=== PATIENT | male | born 1985 ===

== ENCOUNTER 2022-10-06 18:58 | Emergency (ER) | payer OTHER, SELFPAY ==
--- NOTE | ~2022-10-06 | XR_ITS ---
EXAMINATION: XR ABDOMEN KUB CLINICAL INDICATION: Abdominal pain; question constipation. COMPARISON: None available. TECHNIQUE: 2 AP views of the abdomen and pelvis are submitted. FINDINGS: The bowel gas pattern is normal, with no evidence of ileus or obstruction. No unusual soft tissue calcifications are noted. The bones are unremarkable. XR/XR KUB IMPRESSION: Unremarkable examination.
--- NOTE | ~2022-10-06 | US_ITS ---
EXAMINATION: US ABDOMEN LIMITED CLINICAL INFORMATION: Right upper quadrant pain.. COMPARISON: None available. TECHNIQUE: Real-time imaging of the right upper quadrant abdominal viscera.: Doppler exam used. FINDINGS: PANCREAS: Obscured by bowel gas LIVER: Diffuse increased echogenicity of the liver parenchyma consistent with mild diffuse fatty change of liver. The liver is normal in size. The liver contour is normal. There is no focal hepatic lesion. There is no intrahepatic biliary duct dilatation seen. GALLBLADDER: None past study. Gallbladder is contracted. 3 mm nonshadowing echogenic focus along the wall may be a small polyp. No gallstones. No gallbladder wall thickening or pericholecystic fluid. COMMON BILE DUCT: Normal in caliber measuring 0.3 cm in diameter. RIGHT KIDNEY: Normal. No hydronephrosis. No renal calculi or focal parenchymal lesions. The kidney measures 11.1 cm in maximum dimension. FREE FLUID: None. US/US abdomen limited IMPRESSION: 1. No acute abnormality. No gallstone or acute change of gallbladder. No bile duct dilatation. 2. Mild diffuse fatty change of liver.
--- NOTE | 2022-10-06 19:19 | ED_ITS ---
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 Patient reports that is in his mid upper abdomen as well as right side. Pain is worse after eating. The pain is worsening over the last 3 days Reports associated nausea. Denies any history of abdominal surgeries He describes his pain as ?pressure. ? No fevers or chills. Patient reports he last had a normal bowel movement last night Related Data Previous Rx's Medication Instructions Recorded varenicline 0.5 mg (11)-1 mg (42) See Rx Instructions PO PER PKG DIR 12/04/20 tablets in a dose pack ([employer] #53 ea Starting Month Box) omeprazole 20 mg tablet,delayed 20 mg PO DAILY #14 tabs 10/06/22 release simethicone 125 mg chewable tablet 125 mg PO TID PRN abdominal 10/06/22 distention #15 tabs Allergies Allergy/AdvReac Type Severity Reaction Status Date / Time No Known Allergies Allergy Verified 10/06/22 19:20 [No Known Allergies*] Review of Systems Constitutional: Reports as per HPI, Denies chills, Denies fatigue, Denies fever(s) and Denies headache(s) Denies headache(s) Cardiovascular: Denies chest pain and Denies dyspnea Respiratory: Denies cough and Denies dyspnea Gastrointestinal: Reports abdominal pain, Denies nausea and Denies vomiting Genitourinary: Denies difficulty urinating and Denies dysuria Denies headache(s) and Denies focal weakness Endocrine: Denies fatigue [facility] Family History Family History (Updated 12/04/20 @ 12:19 by Padmini Devlin CMA) Mother Diabetes Father Diabetes Social History Social History Housing: Apartment Alcohol intake: current Alcohol intake frequency: a few times a month Alcohol type: beer Tobacco use type: Cigarette Cigarettes Per Day: 8 Smoked in Last 30 Days: Yes e-Cigarette/Vaping Use: Never Used Use of substances other than those prescribed or required for medical reasons: No Advance Directives: No Advance Directives Information Provided: No service: No Current occupation: maintenance Physical Exam ED Vital Signs: Vital Signs - 24 hr 10/06/22 19:20 10/06/22 20:26 10/06/22 20:54 Temperature 98 F 98.4 F 98.4 F Pulse Rate 77 80 78 Respiratory Rate 19 15 16 Blood Pressure 120/69 128/83 132/85 Pulse Oximetry 98 99 97 Oxygen Delivery Method Room Air Room Air Room Air 10/06/22 21:53 Temperature 98.3 F Pulse Rate 76 Respiratory Rate 16 Blood Pressure 128/77 Pulse Oximetry 97 Oxygen Delivery Method Room Air BMI result Body Mass Index 26.0 Const General: healthy appearing, comfortable, no acute distress, alert and awake Nutritional Appearance: well nourished Orientation/consciousness: patient oriented x3 HENMT Head: Yes normocephalic and Yes atraumatic Throat: Yes posterior oropharynx normal Eyes Eyelids: Yes eyelids normal Conjunctivae: conjunctivae normal Sclerae: sclerae normal Corneas: corneas normal Pupils: Equal, round and reactive pupils present EOM: EOMs intact bilaterally Neck Neck: Yes full ROM Resp Effort & Inspection: normal respiratory effort, able to speak in complete sentences and not labored GI Inspection: No distended Palpation (GI): Soft to palpation, not firm, Tenderness to palpation present (GI) in the epigastrum and in the RUQ, no guarding and not rigid Auscultation: normoactive bowel sounds Skin General skin exam: no rashes or lesions noted and elasticity normal Neuro General: patient oriented x3 Cranial nerves: Yes Equal, round and reactive pupils present and Yes Bilaterally intact EOM present Cognition (Neuro): normal cognition Extrem Other: Moving all extremities well without any obvious deformities Course Course Course Narrative: RME - 37 yo Serbian speaking male presenting to the ER for evaluation of RUQ pain that radiates to his back for the last 3 days, worse today. Worse with eating. No N/V/D. No fever, chills, urinary symptoms. Plan: lab work, RUQ U/S Medical Decision Making Medical Decision Making [facility] Narrative: Patient is well-appearing, right upper quadrant sign negative for biliary disease. Labs are reassuring. Patient reports some improvement with GI cocktail. Patient's KUB shows obstipation/constipation. This was discussed with the patient using a python developer Differential Diagnosis Abdominal pain Constipation Obstipation GERD Gastritis Biliary disease Cholelithiasis Acute cholecystitis Lab Data [facility] Lab Attestation statement: I reviewed the patient's lab results. (No significant lab abnormalities) 10/06/22 19:40 10/06/22 19:40 Labs: Lab Results 10/06/22 10/06/22 Range/Units 19:40 19:40 WBC 9.9 (4.8-10.8) X10*3/uL RBC 4.88 (4.60-5.80) X10*6/uL Hgb 14.4 (14.0-18.0) g/dl Hct 43.8 (42.0-52.0) % MCV 89.8 (80.0-98.0) fL MCH 29.5 (27.0-33.0) pg MCHC 32.9 (31.0-36.0) g/dl RDW 12.8 (11.0-16.0) % Plt Count 241 (160-400) X10*3/uL MPV 11.2 (9.4-12.4) fL Immature Gran % (Auto) 0.3 (0.0-0.4) % Neut % (Auto) 53.8 (45-73) % Lymph % (Auto) 32.5 (20-40) % [place] % (Auto) 7.8 (2-11) % Eos % (Auto) 5.0 H (0-4) % Baso % (Auto) 0.6 (0-2) % Lymph # (Auto) 3.2 (1.2-4.9) X10*3/uL [place] # (Auto) 0.8 (0.1-1.2) X10*3/uL Eos # (Auto) 0.5 H (0.0-0.4) X10*3/uL Baso # (Auto) 0.1 (0.0-0.2) X10*3/uL Abs Immat Gran (auto) 0.03 (0.00-0.03) X10*3/uL Absolute Neuts (auto) 5.3 (2.0-8.3) x10*3/uL Absolute Nucleated RBC 0.000 (0.0-0.012) X10*3/uL Nucleated RBC % (auto) 0.0 (0.0-0.2) /100WBC Sodium 141 (135-145) mmol/L Potassium 3.8 (3.3-5.1) mmol/L Chloride 107 (96-108) mmol/L Carbon Dioxide 27 (22-29) mmol/L Anion Gap 11 L (12-20) BUN 11 (9-16) mg/dL Creatinine 0.76 (0.5-1.4) mg/dL Estim Creat Clear Calc 134.3 Estimated GFR > 60 Random Glucose 121 H (60-115) mg/dL Calcium 9.4 (8.4-10.2) mg/dL Magnesium 2.2 (1.6-2.6) mg/dL Total Bilirubin 0.3 (0.0-1.0) mg/dL Direct Bilirubin 0.1 (0.0-0.5) mg/dL AST 15 (5-37) U/L ALT 31 (0-40) U/L Alkaline Phosphatase 74 (39-117) U/L Total Protein 7.0 (6.5-8.0) g/dL Albumin 4.0 (3.5-5.0) g/dL Lipase 18 (8-78) U/L Independent Interpretation I performed an independent interpretation of an: Plain X-Ray (Nonobstructive bowel pattern but with constipation ) Medications Administered Discontinued Medications Generic Name Dose Route Start Last Admin Trade Name Duaneq PRN Reason Stop Dose Admin Al Hydroxide/Mg Hydroxide 30 ml 10/06/22 22:00 10/06/22 22:43 Magnesium Hydrox/Alum Hydrox 30 Ml Oral.Susp PO 10/06/22 22:01 30 ml ONCE ONE Administration Lidocaine HCl 15 ml 10/06/22 22:00 10/06/22 22:43 Lidocaine Hcl Viscous 2 % 15 Ml Solution MUCOUS MEM 10/06/22 22:01 15 ml ONCE ONE Administration Ondansetron HCl 4 mg 10/06/22 22:00 10/06/22 22:43 Ondansetron Odt 4 Mg Tab.Rapdis TRANSLINGU 10/06/22 22:01 4 mg ONCE ONE Administration Discharge Plan Discharge Clinical Impression: Gastroesophageal reflux disease, Obstipation Patient Disposition: Home, Self-Care Instructions: Gastroesophageal Reflux Disease (ED) Additional Instructions: Take Prilosec daily for the next 2 weeks. Use simethicone as directed for abdominal pain and cramps Drink lots of fluids. Avoid alcohol consumption and spicy foods Prescriptions: New omeprazole 20 mg tablet,delayed release (DR/EC) 20 mg PO DAILY Qty: 14 0RF simethicone 125 mg tablet,chewable 125 mg PO TID PRN (Reason: abdominal distention) Qty: 15 0RF No Action Chantix Starting Month Box 0.5 mg (11)- 1 mg (42) tablets,dose pack See Rx Instructions PO PER PKG DIR Qty: 53 0RF Rx Instructions: PO PER PKG DIR
[2022-10-06 19:20] VITALS: BP 120/69; PULSE 77; RESP 19; TEMP 36.6; O2SAT 98; BMI 26.0
[2022-10-06 19:53] LABS: MANUAL DIFF FLAG NO
[2022-10-06 20:04] LABS: Basophils Absolute Auto 0.1 X10*3/uL (0.0-0.2); Basophils Percent Auto 0.6 % (0-2); Eosinophils Absolute Auto 0.5 X10*3/uL (0.0-0.4); Hematocrit 43.8 % (42.0-52.0); Hemoglobin 14.4 g/dl (14.0-18.0); Imm Gran Abs Auto 0.03 X10*3/uL (0.00-0.03); Imm Gran Pct Auto 0.3 % (0.0-0.4); Lymphocytes Absolute Auto 3.2 X10*3/uL (1.2-4.9); Lymphocytes Percent Auto 32.5 % (20-40); Mean Corpuscular HGB Conc 32.9 g/dl (31.0-36.0); Mean Corpuscular Hemoglobin 29.5 pg (27.0-33.0); Mean Corpuscular Volume 89.8 fL (80.0-98.0); Mean Platelet Volume 11.2 fL (9.4-12.4); Monocytes Absolute Auto 0.8 X10*3/uL (0.1-1.2); Monocytes Percent Auto 7.8 % (2-11); Neutrophils Absolute Auto 5.3 x10*3/uL (2.0-8.3); Neutrophils Percent Auto 53.8 % (45-73); Platelet Count 241 X10*3/uL (160-400); Red Blood Count 4.88 X10*6/uL (4.60-5.80); Red Cell Distribution Width 12.8 % (11.0-16.0); White Blood Count 9.9 X10*3/uL (4.8-10.8)
[2022-10-06 20:08] LABS: Alanine Aminotransferase 31 U/L (0-40); Alkaline Phosphatase 74 U/L (39-117); Anion Gap 11 (12-20); Aspartate Amino Transferase 15 U/L (5-37); Bilirubin Direct 0.1 mg/dL (0.0-0.5); Bilirubin Total 0.3 mg/dL (0.0-1.0); Blood Urea Nitrogen 11 mg/dL (9-16); Calcium 9.4 mg/dL (8.4-10.2); Carbon Dioxide 27 mmol/L (22-29); Chloride 107 mmol/L (96-108); Creatinine Clr Calc Pharmacy 134.3; Estimated Glomerular Filt Rate > 60; Glucose Random 121 mg/dL (60-115); Lipase 18 U/L (8-78); Magnesium 2.2 mg/dL (1.6-2.6); Potassium 3.8 mmol/L (3.3-5.1); Sodium 141 mmol/L (135-145)
[2022-10-06 20:26] VITALS: BP 128/83; PULSE 80; RESP 15; TEMP 36.9; O2SAT 99
[2022-10-06 20:54] VITALS: BP 132/85; PULSE 78; RESP 16; TEMP 36.9; O2SAT 97
[2022-10-06 21:53] VITALS: BP 128/77; PULSE 76; RESP 16; TEMP 36.8; O2SAT 97
[2022-10-06] MEDS: Ondansetron ODT 4 MG TAB.RAPDIS TRANSLINGU (22:43)
[2022-10-06] MEDS: Magnesium Hydrox/Alum Hydrox 30 ML ORAL.SUSP PO (22:43)
[2022-10-06] MEDS: Lidocaine HCl Viscous 2 % 15 ML SOLUTION MUCOUS MEM (22:43)
[2022-10-07] VITALS: BP 126/80; PULSE 75; RESP 16; TEMP 36.6; O2SAT 98
--- NOTE | 2022-10-07 00:17 | PC.NURSE ---
iv removed at discharge. vss. pt partner at bedside at discharge. medical claims specialist utilized at discharge. pt calm and cooperative. pt provided with discharge packet. pt verbalized understanding of discharge plan
== END 2022-10-07 00:19 | disposition home or self-care (01) ==
PROVIDERS: Physician Assistant; Emergency Provider Internal Medicine; PCP Hospitalist
DX: K59.00 Constipation, unspecified (principal); K21.9 Gastro-esophageal reflux disease without esophagitis; F17.210 Nicotine dependence, cigarettes, uncomplicated
CPT/HCPCS: 36415; 74018; 76705; 80048; 80076; 83690; 83735; 85025; 99284